=== PATIENT | female | born 1965 | race Caucasian/White ===

== ENCOUNTER → 2020-06-28 | Outpatient (CLI) | payer OTHER ==
[~2020-06-28] MED LIST: CONTRAST GIVEN. MC PRN; IOHEXOL 300 MG/ML 100ML VIAL. IV ONE
--- NOTE | 2020-06-28 15:50 | RAD ---
CT of the abdomen and pelvis with contrast 06/28/2020 3:42 PM Indication: Reason: suprapubic abd. pain, diverticulitis / Spl. Instructions: OMNI 300 inj 75 mL,vol umen 1350 mL / History: Comparison study: None Technique: Multidetector CT imaging of the abdomen and pelvis was performed following the administrat ion of IV contrast. Findings: The partially visualized lung bases demonstrate no acute abnormality. The liver, gallbladder, spleen, bilateral adrenal glands, bilateral kidneys, and pancreas, are grossl y unremarkable. There is no bowel obstruction. There is mild bowel wall thickening throughout the transverse colon.. Either more mild bowel wall thickening and minimally prominent mucosal enhancement involving the sigm oid colon. Findings could reflect inflammatory bowel disease. There are scattered diverticula within the descending and sigmoid colon. Overall the pattern favors a colitis which could be inflammatory or infectious in etiology. The bladder is grossly unremarkable. No free fluid or free air is seen in the abdomen or pelvis. No acute osseous changes are identified. Degenerative changes of the lumbosacral junction noted secondar y to bilateral pars defects with grade 1 anterolisthesis of L5 on S1 . Impression: Mild bowel wall thickening involving the transverse colon and sigmoid colon. Though there are scattered descending and sigmoid colonic diverticulosis the appearance more strongly favors an i nflammatory or infectious colitis. CT DOSING PQRS STATEMENT: One or more of the following individualized dose reduction techniques were utilized for this examinat ion: 1. Automated exposure control 2. Adjustment of the mA and/or kV according to patient size 3. Use of iterative reconstruction technique Electronically signed by: Anuj Sainz MD (06/28/2020 3:48 PM) [id number]
== END ==
LOC: CT 08:52
PROVIDERS: ATTEND Internal Medicine Gastroenterology
DX: K57.92 Diverticulitis of intestine, part unspecified, without perforation or abscess without bleeding (principal); M47.817 Spondylosis without myelopathy or radiculopathy, lumbosacral region; M43.17 Spondylolisthesis, lumbosacral region
CPT/HCPCS: 74170; Q9967

== ENCOUNTER → 2020-07-25 | Day surgery (SDC) | payer OTHER ==
[~2020-07-25] MED LIST changes: +CETI10TA74 PO; -CONTRAST GIVEN. MC PRN; -IOHEXOL 300 MG/ML 100ML VIAL. IV ONE; +IV RINGERS,LACTATED 1000ML 1,000 ML IV SCH; +LIDOCAINE 2% PF 5 ML VIAL. ONE; +PROG100C10 PO; +PROPOFOL 10 MG/ML (20ML) VIAL. IV ONE
[2020-07-25 13:10] VITALS: BP 123/76
== END | disposition home or self-care (01) ==
LOC: SURG 10:53
PROVIDERS: ATTEND Internal Medicine Gastroenterology
DX: R10.32 Left lower quadrant pain (principal); K57.30 Diverticulosis of large intestine without perforation or abscess without bleeding; K57.32 Diverticulitis of large intestine without perforation or abscess without bleeding; K64.0 First degree hemorrhoids; Z20.822 Contact with and (suspected) exposure to COVID-19; Z90.49 Acquired absence of other specified parts of digestive tract; Z90.710 Acquired absence of both cervix and uterus; Z98.890 Other specified postprocedural states; Z79.899 Other long term (current) drug therapy; Z88.0 Allergy status to penicillin; Z72.89 Other problems related to lifestyle
CPT/HCPCS: 45378; 87426; J2704